=== PATIENT | female | born 1990 | race Caucasian/White ===

== ENCOUNTER → 2016-12-15 | Outpatient (REF) ==
[~2016-12-15] MED LIST: BACTRIM DS 8001 TAB PO; FLUOCINONIDE 0.60 GM TP; ORTHO TRI-CYCLE1 TA1 PO; PHENERGAN 25 TA25 MG PO; PREDNISONE10 MG PO; VERELAN PM200 MG PO
== END ==
LOC: WSOH 09:30
DX: Z02.89 Encounter for other administrative examinations (principal)